=== PATIENT | male | born 2000 | race Two or more races ===

== ENCOUNTER 2021-12-15 11:33 | Emergency (ER) | payer OTHER ==
[~2021-12-15] VITALS: Ht 175.3 cm; Wt 73.4 kg
[2021-12-15 11:46] VITALS: BP 137/73
== END 2021-12-15 15:10 | disposition left against medical advice (07) ==
LOC: ER 11:33
DX: J02.9 Acute pharyngitis, unspecified (principal); Z53.21 Procedure and treatment not carried out due to patient leaving prior to being seen by health care provider